=== PATIENT | female | born 1995 | race Caucasian/White ===

== ENCOUNTER 2019-12-25 22:58 | Emergency (ER) | payer OTHER ==
[~2019-12-25] VITALS: Ht 165.1 cm; Wt 186.0 kg
[2019-12-25 23:40] LABS: INFLUENZA A ANTIGEN Negative (Negative); INFLUENZA B ANTIGEN Negative (Negative)
[2019-12-26 01:41] VITALS: BP 112/74
--- NOTE | 2019-12-26 13:47 | EKG ---
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1995 Requested By: Yanely Yarbrough Order Number: [id number] MD: Rich Flood Measurements Intervals [place] Rate: 128 P: 58 WI: 123 QRS: 54 QRSD: 89 T: QT: 283 QTc: 413 Interpretive Statements Sinus tachycardia Borderline repolarization abnormality Baseline wander in lead(s) II,III,aVF No previous ECG available for comparison Electronically Signed On 12-26-2019 13:47:05 CDT by Rich Flood [email or web address] <ELECTRONICALLY SIGNED> By: Rich Flood MD, FACC 12/26/19 1347 [id number] [id number] Rich Flood MD, [facility] /EPI
== END 2019-12-26 01:41 | disposition home or self-care (01) ==
LOC: M.ERS 22:58
PROVIDERS: Personal Emergency Response Attendant
DX: B34.9 Viral infection, unspecified (principal); E86.0 Dehydration; Z20.828 Contact with and (suspected) exposure to other viral communicable diseases

== ENCOUNTER 2020-03-12 10:00 | Emergency (ER) | payer OTHER ==
[~2020-03-12] VITALS: Ht 165.1 cm; Wt 179.2 kg
[2020-03-12 10:57] LABS: ABSOLUTE BASOPHILS 0.1 thou/uL (0.0-0.2); ABSOLUTE EOSINOPHILS 0.1 thou/uL (0.0-0.7); ABSOLUTE LYMPHOCYTES 2.2 thou/uL (0.8-5.3); ABSOLUTE MONOCYTES 0.6 thou/uL (0.0-1.2); BASOPHILS 1.1 %; EOSINOPHILS 1.5 %; HEMATOCRIT 36.4 % (37.0-47.0); HEMOGLOBIN 11.8 gm/dL (12.0-15.0); LYMPHOCYTES 24.2 %; MCH 24.6 pg (26.0-34.0); MCHC 32.5 g/dL (28.0-37.0); MCV 75.6 fL (80.0-100.0); MONOCYTES 6.4 %; MPV 7.4 fl. (7.2-11.1); NUCLEATED RBCS 0 /100WBC; PLATELET COUNT* 332 thou/uL (150-400); POLYS 66.8 %; RBC 4.82 mil/uL (4.20-5.00); RDW-CV 15.6 % (10.5-14.5); WBC 8.9 thou/uL (4.0-11.0)
[2020-03-12 11:08] LABS: CALCIUM 8.8 mg/dL (8.5-10.1); CREATININE 0.8 mg/dL (0.6-1.3); POTASSIUM 4.2 mmol/L (3.5-5.1)
[2020-03-12 11:15] LABS: ALBUMIN 3.3 g/dL (3.4-5.0); TOTAL BILIRUBIN 0.2 mg/dL (<0.1-1.0); TOTAL PROTEIN 7.6 g/dL (6.4-8.2)
[2020-03-12 12:20] LABS: URINE BILIRUBIN NEGATIVE (Negative); URINE BLOOD 2+ (Negative); URINE CLARITY CLEAR; URINE COLOR YELLOW; URINE GLUCOSE-RANDOM NEGATIVE (Negative); URINE KETONES NEGATIVE (Negative); URINE LEUKOCYTES-REFLEX NEGATIVE (Negative); URINE NITRITE-REFLEX NEGATIVE (Negative); URINE PROTEIN NEGATIVE (Negative); URINE SPECIFIC GRAVITY 1.025 (1.005-1.030); URINE UROBILINOGEN 0.2 E.U./dl (0.2-1.0)
[2020-03-12 12:31] LABS: BACTERIA-REFLEX 1-9 Few /HPF (None Seen); CASTS None Seen /LPF (None Seen); CRYSTALS None Seen /LPF (None Seen); MUCUS 0-3 Light strn/LPF (None Seen); SQUAMOUS 0-3 Few /LPF (0-3); URINE RBC 3-10 Few /HPF (0-2); URINE WBC-REFLEX 0-5 Rare /HPF (0-5)
[2020-03-12] MEDS ORDERED: KEFLEX500 M1 PO (13:21)
[2020-03-12] MEDS ORDERED: IBUPROFEN 800800 M1 PO (13:21)
[2020-03-12 13:32] VITALS: BP 141/98
--- NOTE | 2020-03-12 16:34 | EKG ---
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1995 Requested By: Ronaldo Carlos Order Number: [id number] MD: Rich Flood Measurements Intervals [place] Rate: 80 P: 38 MA: 132 QRS: 38 QRSD: 95 T: 12 QT: 398 QTc: 460 Interpretive Statements Sinus rhythm Borderline T abnormalities, anterior leads Baseline wander in lead(s) V4 Compared to ECG 12/25/2019 23:41:46 T-wave abnormality now present Sinus tachycardia no longer present Electronically Signed On 03-12-2020 16:33:59 [employer] by Rich Flood [email or web address] <ELECTRONICALLY SIGNED> By: Rich Flood MD, [facility] 03/12/20 1633 1056 1056 Rich Flood MD, [facility] /EPI
== END 2020-03-12 13:32 | disposition home or self-care (01) ==
LOC: M.ERS 10:00
PROVIDERS: Emergency Medicine Emergency Medical Services
DX: N39.0 Urinary tract infection, site not specified (principal); Z90.49 Acquired absence of other specified parts of digestive tract